=== PATIENT | female | born 1970 | race Caucasian/White ===

== ENCOUNTER → 2016-05-06 | Outpatient (CLI) | payer OTHER ==
[2016-05-06 09:17] LABS: ABSOLUTE BASOPHILS # (AUTO) 0.1 10^3/uL (0.0-0.2); ABSOLUTE EOSINOPHILS # (AUTO) 0.1 10^3/uL (0.0-0.6); ABSOLUTE LYMPHOCYTES (AUTO) 1.8 10^3/uL (0.5-4.7); ABSOLUTE MONOCYTES (AUTO) 0.3 10^3/uL (0.1-1.4); ABSOLUTE NEUT (AUTO) 2.7 10^3/uL (1.7-8.2); BASOPHILS % (AUTO) 1.2 % (0-2); EOSINOPHILS % (AUTO) 2.4 % (0-6); HEMATOCRIT 41.6 % (36.0-47.0); HEMOGLOBIN 13.9 g/dL (12.0-15.5); HGB HCT DIFFERENCE 0.1; LYMPHOCYTES % (AUTO) 35.6 % (13-45); MEAN CORPUSCULAR HEMOGLOBIN 31.4 pg (27.0-33.4); MEAN CORPUSCULAR HGB CONC 33.3 g/dL (32.0-36.0); MEAN CORPUSCULAR VOLUME 94 fl (80-97); MONOCYTES % (AUTO) 6.9 % (3-13); RED BLOOD COUNT 4.42 10^6/uL (3.72-5.28); RED CELL DISTRIBUTION WIDTH 12.3 % (11.5-14.0); SEGMENTED NEUTROPHILS % (AUTO) 53.9 % (42-78); WHITE BLOOD COUNT 4.9 10^3/uL (4.0-10.5)
[2016-05-06 09:25] LABS: APPEARANCE,URINE CLEAR; BILIRUBIN,URINE NEGATIVE (NEGATIVE); GLUCOSE, URINE NEGATIVE (NEGATIVE); KETONES,URINE NEGATIVE (NEGATIVE); LEUKOCYTE ESTERASE,URINE NEGATIVE (NEGATIVE); NITRITE,URINE NEGATIVE (NEGATIVE); PROTEIN,URINE NEGATIVE (NEGATIVE); URINE SPECIFIC GRAVITY 1.012; UROBILINOGEN,URINE NEGATIVE mg/dL (<2.0)
[2016-05-06 09:39] LABS: ALANINE AMINOTRANSFERASE 26 U/L (9-52); ALBUMIN 4.5 g/dL (3.5-5.0); ALKALINE PHOSPHATASE 63 U/L (38-126); ANION GAP 11 (5-19); ASPARTATE AMINO TRANSFERASE 24 U/L (14-36); BILIRUBIN,TOTAL 0.5 mg/dL (0.2-1.3); BLOOD UREA NITROGEN 15 mg/dL (7-20); CALCIUM 9.6 mg/dL (8.4-10.2); CARBON DIOXIDE 27 mmol/L (22-30); CHLORIDE 102 mmol/L (98-107); CHOLESTEROL 150.52 mg/dL (0-200); CREATININE RESULT 1.05 mg/dL (0.52-1.25); Direct HDL 57 mg/dL (>40); GLUCOSE 90 mg/dL (75-110); POTASSIUM 4.8 mmol/L (3.6-5.0); SODIUM 139.5 mmol/L (137-145); TOTAL PROTEIN 7.3 g/dL (6.3-8.2); TRIGLYCERIDES 56 mg/dL (<150)
[2016-05-06 09:50] LABS: DIRECT LDL 74 mg/dL (<100)
== END ==
LOC: OD 08:24
DX: Z79.899 Other long term (current) drug therapy (principal); R53.83 Other fatigue
CPT/HCPCS: 36415; 80053; 80061; 81001; 83036; 84443; 85025

== ENCOUNTER → 2016-05-10 | Outpatient (CLI) | payer OTHER ==
--- NOTE | 2016-05-10 16:08 | WOMENS IMAGING REPORT ---
EXAM DESCRIPTION: BILAT SCREENING MAMMO W/CAD COMPLETED DATE/TIME: 05/10/2016 1:23 pm REASON FOR STUDY: Z12.31 ROUTINE SCREENING MAMMO Z12.39 ENCOUNTER FOR OTH SCREENING FOR MALIGNANT N EOPLASM OF COMPARISON: None. TECHNIQUE: Standard craniocaudal and mediolateral oblique views of each breast recorded using digita l acquisition. LIMITATIONS: None. FINDINGS: No masses, calcifications or architectural distortion. No areas of suspicion. Read with the assistance of CAD. .[facility] - R2 Cenova Version 1.3 .[facility] - R2 Cenova Version 1.3 .[facility] - R2 Cenova Version 2.4 .[facility] [place] Cenova Version 2.4 .[facility] - R2 Launch Steward Version 9.2 BREAST DENSITY: b. There are scattered areas of fibroglandular density. BIRAD: 1 NEGATIVE RECOMMENDATION: ROUTINE SCREENING COMMENT: PATIENT NOTIFIED BY LETTER. The [employer] recommends an annual screening mammogram for women aged 40 years or over. Each patient will receive a reminder prior to the anniversary date of her mammogram. The [employer] (ACR) has developed recommendations for screening MRI of the breast s in certain patient populations, to be used in conjunction with mammography. Breast MRI surveillanc e may be appropriate for women with more than 20% lifetime risk of developing breast cancer as deter mined by genetic testing, significant family history of the disease, or history of mantle radiation f or Hodgkins Disease. ACR Practice Guidelines 2007. TECHNICAL DOCUMENTATION: FINDING NUMBER: (1) ASSESSMENT: (1) JOB ID: [id number] [employer]- All Rights Reserved
== END ==
LOC: WI 10:28
DX: Z12.31 Encounter for screening mammogram for malignant neoplasm of breast (principal); R06.02 Shortness of breath
CPT/HCPCS: 77067; G0202

== ENCOUNTER 2016-06-03 00:48 | Emergency (ER) | payer OTHER ==
[2016-06-03] MEDS ORDERED: DIPHENHYDRAMINE HCL 50 MG/ML VIAL IV ONE (02:32)
[2016-06-03] MEDS ORDERED: MORPHINE SULFATE 10 MG/ML INJ IV PRN (02:32)
[2016-06-03] MEDS ORDERED: NORMAL SALINE 1000 ML 1,000 ML IV ONE (02:33)
[2016-06-03] MEDS ORDERED: LORAZEPAM INJ 2 MG/1 ML VIAL ONE (02:55)
[2016-06-03 03:24] LABS: ABSOLUTE BASOPHILS # (AUTO) 0.1 10^3/uL (0.0-0.2); ABSOLUTE EOSINOPHILS # (AUTO) 0.1 10^3/uL (0.0-0.6); ABSOLUTE LYMPHOCYTES (AUTO) 1.5 10^3/uL (0.5-4.7); ABSOLUTE MONOCYTES (AUTO) 0.6 10^3/uL (0.1-1.4); ABSOLUTE NEUT (AUTO) 8.9 10^3/uL (1.7-8.2); BASOPHILS % (AUTO) 0.7 % (0-2); EOSINOPHILS % (AUTO) 0.9 % (0-6); HEMATOCRIT 36.5 % (36.0-47.0); HEMOGLOBIN 12.2 g/dL (12.0-15.5); HGB HCT DIFFERENCE 0.1; LYMPHOCYTES % (AUTO) 13.3 % (13-45); MEAN CORPUSCULAR HEMOGLOBIN 31.5 pg (27.0-33.4); MEAN CORPUSCULAR HGB CONC 33.6 g/dL (32.0-36.0); MEAN CORPUSCULAR VOLUME 94 fl (80-97); MONOCYTES % (AUTO) 5.5 % (3-13); RED BLOOD COUNT 3.89 10^6/uL (3.72-5.28); SEGMENTED NEUTROPHILS % (AUTO) 79.6 % (42-78); WHITE BLOOD COUNT 11.2 10^3/uL (4.0-10.5)
[2016-06-03 03:47] LABS: APPEARANCE,URINE CLEAR; BILIRUBIN,URINE NEGATIVE (NEGATIVE); GLUCOSE, URINE NEGATIVE (NEGATIVE); KETONES,URINE NEGATIVE (NEGATIVE); LEUKOCYTE ESTERASE,URINE NEGATIVE (NEGATIVE); NITRITE,URINE NEGATIVE (NEGATIVE); PROTEIN,URINE NEGATIVE (NEGATIVE); URINE SPECIFIC GRAVITY 1.003; UROBILINOGEN,URINE NEGATIVE mg/dL (<2.0)
[2016-06-03 04:15] LABS: ANION GAP 8 (5-19); BLOOD UREA NITROGEN 13 mg/dL (7-20); CALCIUM 8.6 mg/dL (8.4-10.2); CARBON DIOXIDE 22 mmol/L (22-30); CHLORIDE 108 mmol/L (98-107); GLUCOSE 105 mg/dL (75-110); POTASSIUM 4.2 mmol/L (3.6-5.0); SODIUM 138.4 mmol/L (137-145)
--- NOTE | 2016-06-03 04:37 | ER Document Report ---
ED General - General Chief Complaint: Allergic Reaction Stated Complaint: POSSIBLE ALLERGIC REACTION Notes: Patient is a 45-year-old female with past history of epilepsy who presents with shakiness and feelings of "internal feelings like I'm on fire" after taking clindamycin. Denies any shortness of breath, vomiting or diarrhea. No syncope. States that she felt anxious in the past of taking clindamycin but never to this degree of severity. She has not talked to her primary care doctor regarding today's concerns. Nothing improves or worsens her symptoms. TRAVEL OUTSIDE OF THE [place] IN LAST 30 DAYS: No - Related Data Allergies/Adverse Reactions: No Known Allergies Allergy (Verified 06/03/16 00:58) Past Medical History - General Information source: Patient - Social History Smoking Status: Never Smoker Chew tobacco use (# tins/day): No Frequency of alcohol use: None Drug Abuse: None Lives with: Spouse/Significant other Family History: Reviewed & Not Pertinent, Other - Gallbladder disease Patient has suicidal ideation: No Patient has homicidal ideation: No Pulmonary Medical History: Denies: Hx Tuberculosis Neurological Medical History: Reports: Hx Seizures - nocturnal; takes keppra Renal/ Medical History: Denies: Hx Peritoneal Dialysis Past Surgical History: Reports: Hx Section - Immunizations Hx Diphtheria, Pertussis, Tetanus Vaccination: Yes Review of Systems - Review of Systems Notes: Constitutional: Negative for fever. HENT: Negative for sore throat. Eyes: Negative for visual changes. Cardiovascular: Negative for chest pain. Respiratory: Negative for shortness of breath. Gastrointestinal: Negative for abdominal pain, vomiting or diarrhea. Genitourinary: Negative for dysuria. Musculoskeletal: Negative for back pain. Skin: Negative for rash. Neurological: Negative for headaches, weakness or numbness. 10 point ROS negative except as marked above and in HPI. Physical Exam - Vital signs Vitals: Temp Pulse Resp BP Pulse Ox 97.2 F 124 H 18 131/91 H 100 06/03/16 00:52 06/03/16 00:52 06/03/16 00:52 06/03/16 00:52 06/03/16 00:52 Interpretation: Tachycardic Notes: PHYSICAL EXAMINATION: GENERAL: Appears anxious but in no acute distress HEAD: Atraumatic, normocephalic. EYES: Pupils equal round and reactive to light, extraocular movements intact, sclera anicteric, conjunctiva are normal. ENT: nares patent, oropharynx clear without exudates. Moist mucous membranes. NECK: Normal range of motion, supple without lymphadenopathy LUNGS: Breath sounds clear to auscultation bilaterally and equal. No wheezes rales or rhonchi. HEART: Regular rate and rhythm without murmurs ABDOMEN: Soft, nontender, normoactive bowel sounds. No guarding, no rebound. No masses appreciated. EXTREMITIES: Normal range of motion, no pitting or edema. No cyanosis. NEUROLOGICAL: No focal neurological deficits. Moves all extremities spontaneously and on command. PSYCH: Anxious, tremulous SKIN: Warm, Dry, normal turgor, no rashes or lesions noted. Course - Re-evaluation Re-evalutation: 06/03/16 04:39 Patient presented with tremulousness and severe anxiety in the setting of taking clindamycin. She notes that she has had similar symptoms in the past and to include although never to this degree of severity. Patient did have some mild erythema without any raised lesions on her low back and abdomen although her clinical history was not suspicious for an acute true histamine mediated allergic reaction. Patient became increasingly anxious despite administration of IV Benadryl, and a small dose of IV Ativan was administered. This did resolve and a complete resolution of patient's symptoms. Her laboratories here including her urinalysis are overall unremarkable although bacteria is noted on the urinalysis. This is been sent for culture. Patient has already had antibiotics called to the pharmacy by her primary care doctor who is already cultured her urine site instructed her to start taking those antibiotics as prescribed. She is otherwise well in appearance, vitals within normal limits at this time.At this time will discharge with return precautions and follow-up recommendations. Verbal discharge instructions given a the bedside and opportunity for questions given. Medication warnings reviewed. Patient is in agreement with this plan and has verbalized understanding of return precautions and the need for primary care follow-up in the next 24-72 hours. - Vital Signs Vital signs: Temp Pulse Resp BP Pulse Ox 97.2 F 69 16 114/67 99 06/03/16 00:52 06/03/16 04:58 06/03/16 04:58 06/03/16 04:58 06/03/16 04:58 - Laboratory Result Diagrams: 06/03/16 02:45 06/03/16 03:32 Laboratory results interpreted by me: 02/27/17 02/27/17 02:45 03:32 WBC 11.2 H Seg Neutrophils % 79.6 H Absolute Neutrophils 8.9 H Chloride 108 H Discharge - Discharge Clinical Impression: Adverse reaction to antibiotic Qualifiers: Encounter type: initial encounter Qualified Code(s): T36.95XA - Adverse effect of unspecified systemic antibiotic, initial encounter Condition: Good Disposition: HOME, SELF-CARE Additional Instructions: Your history today seems to suggest that you have had an adverse reaction to clindamycin. Please avoid this medication in the future. Take the antibiotic as prescribed by your primary care doctor for the bacteria in the urine. Return for any new or worsening symptoms including fever, vomiting, passing out , or any other symptoms that are worrisome to you. Referrals: SARAH ACUÑA MD [Primary Care Provider] - Follow up tomorrow
[2016-06-03 05:00] VITALS: BP 114/67
== END 2016-06-03 04:58 | disposition home or self-care (01) ==
LOC: ER 00:48
DX: T36.95XA Adverse effect of unspecified systemic antibiotic, initial encounter (principal); F41.9 Anxiety disorder, unspecified
CPT/HCPCS: 99283; 96361; 96374; 96375; 36415; 87086; 85025; 80048; 81001; 87186; J1200; J2060; J7030; J2270

== ENCOUNTER → 2016-06-09 11:11 | Inpatient (IN) | payer OTHER ==
[2016-06-07] MEDS: NORMAL SALINE 1000 ML 1,000 ML IV PRN ×2 (16:28→22:06)
[2016-06-07 16:29] LABS: ABSOLUTE BASOPHILS # (AUTO) 0.1 10^3/uL (0.0-0.2); ABSOLUTE LYMPHOCYTES (AUTO) 1.6 10^3/uL (0.5-4.7); ABSOLUTE MONOCYTES (AUTO) 0.4 10^3/uL (0.1-1.4); ABSOLUTE NEUT (AUTO) 4.7 10^3/uL (1.7-8.2); BASOPHILS % (AUTO) 0.9 % (0-2); EOSINOPHILS % (AUTO) 0.6 % (0-6); HEMATOCRIT 39.7 % (36.0-47.0); HEMOGLOBIN 13.6 g/dL (12.0-15.5); HGB HCT DIFFERENCE 1.1; LYMPHOCYTES % (AUTO) 23.9 % (13-45); MEAN CORPUSCULAR HEMOGLOBIN 31.8 pg (27.0-33.4); MEAN CORPUSCULAR HGB CONC 34.2 g/dL (32.0-36.0); MEAN CORPUSCULAR VOLUME 93 fl (80-97); MONOCYTES % (AUTO) 5.3 % (3-13); RED BLOOD COUNT 4.27 10^6/uL (3.72-5.28); RED CELL DISTRIBUTION WIDTH 12.8 % (11.5-14.0); SEGMENTED NEUTROPHILS % (AUTO) 69.3 % (42-78); WHITE BLOOD COUNT 6.8 10^3/uL (4.0-10.5)
[2016-06-07] MEDS: ACETAMINOPHEN 325 MG TABLET PO PRN (16:43)
[2016-06-07 16:48] LABS: ALANINE AMINOTRANSFERASE 41 U/L (9-52); ALBUMIN 4.8 g/dL (3.5-5.0); ALKALINE PHOSPHATASE 69 U/L (38-126); ANION GAP 13 (5-19); ASPARTATE AMINO TRANSFERASE 35 U/L (14-36); BILIRUBIN,TOTAL 0.6 mg/dL (0.2-1.3); BLOOD UREA NITROGEN 7 mg/dL (7-20); CALCIUM 10.2 mg/dL (8.4-10.2); CARBON DIOXIDE 26 mmol/L (22-30); CHLORIDE 101 mmol/L (98-107); CREATININE RESULT 0.86 mg/dL (0.52-1.25); GLUCOSE 116 mg/dL (75-110); SODIUM 139.6 mmol/L (137-145); TOTAL PROTEIN 8.1 g/dL (6.3-8.2)
--- NOTE | 2016-06-07 16:55 | PDOC H&P ---
History of Present Illness Admission Date/PCP: 06/07/16 14:44 SARAH ACUÑA MD Patient complains of: Dysuria, chills and right flank pain History of Present Illness: LASHA SILVA is a 45 year old female who is referred for direct admission from [place] [facility]. Dr. Worthington, is the physician she has seen their. She states she was treated for his infected spider bite on her right thigh proximally 10 days ago. She initially was seen in a local urgent care and given a prescription for clindamycin. Her primary doctor change this to Cipro twice a day 4 days ago. She states she then began having dysuria so she returned her physician's office initiated urinalysis did not show UTI. She states he called her 2 days later because her culture grew out ESBL. She has no prior history of ESBL. 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 He then placed her on possible fosfomycin which pharmacies locally had trouble obtaining. She therefore never took this medication. She returned to her doctor's office today, because of increasing weakness, chills, and dysuria. She was then referred for IV the antibiotics and inpatient treatment. Presently she denies any fever or chills. She denies any significant flank pain. She states she does feel weak and slightly dehydrated. She feels as if she has to urinate all the time however, she has burning, with little urinary output. She also complains of metal taste in her mouth. She denies any shortness of breath, chest pain or dyspnea. She denies any headaches, nausea, or dizziness. She denies any significant arthralgias or myalgias. She does have a history of seizure disorders. She states her seizures are usually petit mal when she has them. Past Medical History Cardiac Medical History: Reports: None Pulmonary Medical History: Denies: Tuberculosis EENT Medical History: Reports: None Neurological Medical History: Reports: Seizures - nocturnal; takes keppra Endocrine Medical History: Reports: None Malignancy Medical History: Reports: None GI Medical History: Reports: None Skin Medical History: Reports: None Psychiatric Medical History: Denies: Depression Infectious Medical History: Reports: None Past Surgical History Past Surgical History: Reports: Section Social History Information Source: Parent Lives with: Spouse/Significant other Smoking Status: Never Smoker Frequency of Alcohol Use: None Hx Recreational Drug Use: No Hx Prescription Drug Abuse: No - Advance Directive Resuscitation Status: Full Code Surrogate healthcare decision maker:: should she become incapacitated Family History Family History: Reviewed & Not Pertinent, Other - Gallbladder disease Parental Family History Reviewed: Yes Children Family History Reviewed: Yes Sibling(s) Family History Reviewed.: Yes Medication/Allergy Home Medications: Fosfomycin Tromethamine [Monurol 3 gm Packet] 3 gm PO ONCE 06/07/16 Lamotrigine [Lamictal] 25 mg PO Q12 06/07/16 Levetiracetam [Keppra Xr 500 mg Tab.sr] 500 mg PO ASDIR PRN 06/07/16 Allergies/Adverse Reactions: clindamycin Allergy (Intermediate, Verified 06/07/16 15:59) Generalized rash Review of Systems Constitutional: PRESENT: anorexia, chills, fatigue, weakness Eyes: ABSENT: visual disturbances Ears: ABSENT: hearing changes Cardiovascular: ABSENT: chest pain, dyspnea on exertion, edema, orthropnea, palpitations Respiratory: ABSENT: cough, hemoptysis Gastrointestinal: ABSENT: abdominal pain, constipation, diarrhea, hematemesis, hematochezia, nausea, vomiting Integumentary: ABSENT: rash, wounds Neurological: PRESENT: dizziness, weakness Endocrine: ABSENT: cold intolerance, heat intolerance, polydipsia, polyuria Physical Exam Vital Signs: Temp Pulse Resp BP Pulse Ox 98.4 F 93 17 134/87 H 100 06/07/16 15:03 06/07/16 15:03 06/07/16 15:03 06/07/16 15:03 06/07/16 15:03 Intake & Output 06/06/16 06/07/16 06/08/16 06:59 06:59 06:59 Weight 62.278 kg General appearance: PRESENT: no acute distress, well-developed, well-nourished Head exam: PRESENT: atraumatic, normocephalic Eye exam: PRESENT: conjunctiva pink, EOMI, PERRLA. ABSENT: scleral icterus Ear exam: PRESENT: normal external ear exam Mouth exam: PRESENT: moist, tongue midline Neck exam: ABSENT: carotid bruit, JVD, lymphadenopathy, thyromegaly Respiratory exam: PRESENT: clear to auscultation arsalan. ABSENT: rales, rhonchi, wheezes Cardiovascular exam: PRESENT: RRR. ABSENT: diastolic murmur, rubs, systolic murmur Pulses: PRESENT: normal dorsalis pedis pul GI/Abdominal exam: PRESENT: normal bowel sounds, soft, other - CVA tenderness is negative. ABSENT: distended, guarding, mass, organolmegaly, rebound, tenderness Rectal exam: PRESENT: deferred Extremities exam: PRESENT: full ROM. ABSENT: calf tenderness, clubbing, pedal edema Neurological exam: PRESENT: alert, awake, oriented to person, oriented to place , oriented to time, oriented to situation, CN II-XII grossly intact. ABSENT: motor sensory deficit Psychiatric exam: PRESENT: appropriate affect, normal mood. ABSENT: homicidal ideation, suicidal ideation Skin exam: PRESENT: dry, intact, warm. ABSENT: cyanosis, rash Results Laboratory Results: 06/07/16 16:15 06/07/16 16:15 WBC 6.8 RBC 4.27 Hgb 13.6 Hct 39.7 MCV 93 MCH 31.8 MCHC 34.2 RDW 12.8 Plt Count 312 Seg Neutrophils % 69.3 Lymphocytes % 23.9 Monocytes % 5.3 Eosinophils % 0.6 Basophils % 0.9 Absolute Neutrophils 4.7 Absolute Lymphocytes 1.6 Absolute Monocytes 0.4 Absolute Eosinophils 0.0 Absolute Basophils 0.1 Assessment & Plan - Diagnosis (1) Pyelonephritis Is this a current diagnosis for this admission?: YesPlan: Culture reportedly grew out ESBL. We will reculture and start her on Invanz (2) Seizure disorder Is this a current diagnosis for this admission?: YesPlan: Continue home medications - Time Time Spent: 50 to 70 Minutes Critical Time spent with patient: 25-34 minutes Medications reviewed and adjusted accordingly: Yes Anticipated discharge: Home
[2016-06-07] MEDS: ERTAPENEM SODIUM 1 GM in NORMAL SALINE 50 ML IV SCH (17:47)
[2016-06-07 19:25] LABS: APPEARANCE,URINE CLEAR; BILIRUBIN,URINE NEGATIVE (NEGATIVE); GLUCOSE, URINE NEGATIVE (NEGATIVE); KETONES,URINE NEGATIVE (NEGATIVE); LEUKOCYTE ESTERASE,URINE NEGATIVE (NEGATIVE); NITRITE,URINE NEGATIVE (NEGATIVE); PROTEIN,URINE NEGATIVE (NEGATIVE); URINE SPECIFIC GRAVITY 1.008; UROBILINOGEN,URINE NEGATIVE mg/dL (<2.0)
[2016-06-07] MEDS: FAMOTIDINE 20 MG TABLET PO SCH (22:09)
[2016-06-07] MEDS: LAMOTRIGINE 25 MG TAB.CHEW PO SCH (22:10)
[2016-06-07] MEDS: PHENAZOPYRIDINE HCL 200 MG TABLET PO SCH (23:59)
[2016-06-08] MEDS: NORMAL SALINE 1000 ML 1,000 ML IV PRN ×3 (05:45→23:19)
[2016-06-08] MEDS: PHENAZOPYRIDINE HCL 200 MG TABLET PO SCH ×3 (05:45→22:41)
[2016-06-08] MEDS: ACETAMINOPHEN 325 MG TABLET PO PRN (05:45)
[2016-06-08] MEDS: FAMOTIDINE 20 MG TABLET PO SCH ×2 (10:34→22:41)
[2016-06-08] MEDS: FLUCONAZOLE 100 MG TABLET PO SCH (10:34)
[2016-06-08] MEDS: LAMOTRIGINE 25 MG TAB.CHEW PO SCH ×2 (10:35→22:41)
--- NOTE | 2016-06-08 17:00 | PDOC PROGRESS REPORT ---
Subjective Progress Note for:: 06/08/16 Subjective:: Patient morning rounds. She is presently resting comfortably in bed. She denies any further dysuria. She does have some zulay blood when she wipes from irritated tissue she thinks. Her vaginal symptoms have resolved since starting Diflucan. Urinalysis showed no leukocytes only a small amount of blood. She complains of feeling stressed and anxious. She does not usually take anything for that. She feels the situation of being in the hospital. She is afraid she may have bladder cancer. Physical Exam Vital Signs: Temp Pulse Resp BP Pulse Ox 97.9 F 63 18 126/56 H 100 06/08/16 12:35 06/08/16 12:35 06/08/16 12:35 06/08/16 12:35 06/08/16 12:35 Intake & Output 06/07/16 06/08/16 06/09/16 06:59 06:59 06:59 Intake Total 3790 Output Total 1000 Balance 2790 Weight 65.3 kg General appearance: PRESENT: no acute distress, well-developed, well-nourished Head exam: PRESENT: atraumatic, normocephalic Eye exam: PRESENT: conjunctiva pink, EOMI, PERRLA. ABSENT: scleral icterus Ear exam: PRESENT: normal external ear exam Mouth exam: PRESENT: moist, tongue midline Neck exam: ABSENT: carotid bruit, JVD, lymphadenopathy, thyromegaly Respiratory exam: PRESENT: clear to auscultation arsalan. ABSENT: rales, rhonchi, wheezes Cardiovascular exam: PRESENT: RRR. ABSENT: diastolic murmur, rubs, systolic murmur Pulses: PRESENT: normal dorsalis pedis pul Vascular exam: PRESENT: normal capillary refill GI/Abdominal exam: PRESENT: normal bowel sounds, soft. ABSENT: distended, guarding, mass, organolmegaly, rebound, tenderness Rectal exam: PRESENT: deferred Extremities exam: PRESENT: full ROM. ABSENT: calf tenderness, clubbing, pedal edema Neurological exam: PRESENT: alert, awake, oriented to person, oriented to place , oriented to time, oriented to situation, CN II-XII grossly intact. ABSENT: motor sensory deficit Psychiatric exam: PRESENT: appropriate affect, normal mood. ABSENT: homicidal ideation, suicidal ideation Skin exam: PRESENT: dry, intact, warm. ABSENT: cyanosis, rash Results Laboratory Results: 06/07/16 16:15 06/07/16 16:15 06/07/16 17:55 Urine Color YELLOW Urine Appearance CLEAR Urine pH 6.0 Ur Specific [place] 1.008 Urine Protein NEGATIVE Urine Glucose (UA) NEGATIVE Urine Ketones NEGATIVE Urine Blood SMALL H Urine Nitrite NEGATIVE Ur Leukocyte Esterase NEGATIVE Urine WBC (Auto) 1 Urine RBC (Auto) 1 Impressions: Renal Ultrasound 06/08/16 00:00 IMPRESSION: Mildly dilated left renal pelvis without visualized stones. Assessment & Plan - Diagnosis (1) Pyelonephritis Is this a current diagnosis for this admission?: YesPlan: Culture reportedly grew out ESBL in her primary physician's office. Urinalysis here shows no leukocytosis, nitrates and only small amount of blood. Urine culture and blood cultures are still pending. Will obtain renal ultrasound to rule out any bladder renal pathology. We will reculture and start her on Invanz (2) Seizure disorder Is this a current diagnosis for this admission?: YesPlan: Continue home medications (3) Anxiety Is this a current diagnosis for this admission?: YesPlan: We'll order Xanax 0.5 every 6 when necessary for anxiety. - Time Time Spent with patient: 25-34 minutes Critical Time spent with patient: 15-24 minutes Anticipated discharge: Home
[2016-06-08] MEDS: ERTAPENEM SODIUM 1 GM in NORMAL SALINE 50 ML IV SCH (17:38)
[2016-06-09] MEDS: PHENAZOPYRIDINE HCL 200 MG TABLET PO SCH (05:08)
[2016-06-09 08:41] VITALS: BP 122/76
[2016-06-09] MEDS: LAMOTRIGINE 25 MG TAB.CHEW PO SCH (10:17)
[2016-06-09] MEDS: FAMOTIDINE 20 MG TABLET PO SCH (10:17)
[2016-06-09] MEDS: FLUCONAZOLE 100 MG TABLET PO SCH (10:17)
[~2016-06-09 11:11] MED LIST: ALPRAZOLAM 0.5 MG TABLET PO PRN; ERTAPENEM SODIUM 1 GM in NORMAL SALINE 50 ML IV SCH; KETOROLAC TROMETHAMINE INJ/PF 30 MG/1 ML SDV IV PRN; LEVETIRACETAM XR 500 MG TAB.SR.24H PO PRN; LEVETIRACETAM XR 500 MG TAB.SR.24H PO SCH
--- NOTE | 2016-06-09 14:05 | PDOC DISCHARGE SUMMARY ---
General - Admit/Disc Date/PCP Admission Date/Primary Care Provider: 06/07/16 14:44 SARAH ACUÑA MD Discharge Date: 06/09/16 - Discharge Diagnosis (1) Pyelonephritis Is this a current diagnosis for this admission?: YesSummary: Resolved (2) Seizure disorder Is this a current diagnosis for this admission?: YesSummary: Continue medications (3) Anxiety Is this a current diagnosis for this admission?: YesSummary: Continue anxiolytic as needed - Additional Information Resuscitation Status: Full Code Discharge Diet: Regular Discharge Activity: Activity As Tolerated Home Medications: Lamotrigine [Lamictal] 25 mg PO Q12 06/07/16 Levetiracetam [Keppra Xr 500 mg Tab.sr] 500 mg PO ASDIR PRN 06/07/16 Acetaminophen [Tylenol 325 mg Tablet] 650 mg PO Q4HP PRN tablet 06/09/16 Alprazolam [Xanax 0.5 mg Tablet] 0.5 mg PO Q6HP PRN #20 tablet 06/09/16 Fluconazole [Diflucan] 150 mg PO DAILY #3 tablet 06/09/16 Phenazopyridine HCl [Pyridium 200 mg Tablet] 200 mg PO Q8 #6 tablet 06/09/16 History of Present Illness History of Present Illness: LASHA SILVA is a 45 year old female who is referred for direct admission from [place] primary care office. Dr. Worthington, is the physician she has seen their. She states she was treated for his infected spider bite on her right thigh proximally 10 days ago. She initially was seen in a local urgent care and given a prescription for clindamycin. Her primary doctor change this to Cipro twice a day 4 days ago. She states she then began having dysuria so she returned her physician's office initiated urinalysis did not show UTI. She states he called her 2 days later because her culture grew out ESBL. She has no prior history of ESBL. 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 He then placed her on possible fosfomycin which pharmacies locally had trouble obtaining. She therefore never took this medication. She returned to her doctor's office today, because of increasing weakness, chills, and dysuria. She was then referred for IV the antibiotics and inpatient treatment. Presently she denies any fever or chills. She denies any significant flank pain. She states she does feel weak and slightly dehydrated. She feels as if she has to urinate all the time however, she has burning, with little urinary output. She also complains of metal taste in her mouth. She denies any shortness of breath, chest pain or dyspnea. She denies any headaches, nausea, or dizziness. She denies any significant arthralgias or myalgias. She does have a history of seizure disorders. She states her seizures are usually petit mal when she has them. Hospital Course Hospital Course: Patient was instructed admission from [facility]. She had been treated there for for recent urinary tract infection and the cellulitis. She returned to her physician complaining of increasing burning with urination. Initial urinalysis was unremarkable. Her urine culture however, did grow ESBL. She was therefore referred to the hospitalist for admission for possible pyelonephritis. Initially she was recultured. Urinalysis showed only small amount of blood and no leukocytes or nitrates. She was started on Invanz IV. She continued have some pelvic pressure, therefore a renal bladder ultrasound was obtained which was unremarkable. She had some issues with anxiety was given Xanax 0.5 which she tolerated well. Today she is ready for discharge Physical Exam Vital Signs: Temp Pulse Resp BP Pulse Ox 98.3 F 18 L 18 122/76 100 06/09/16 10:40 06/09/16 10:40 06/09/16 10:40 06/09/16 10:40 06/09/16 10:40 Intake & Output 06/08/16 06/09/16 06/10/16 06:59 06:59 06:59 Intake Total 3790 1771 120 Output Total 1000 Balance 2790 1771 120 Weight 65.3 kg 69.3 kg General appearance: PRESENT: no acute distress, well-developed, well-nourished Head exam: PRESENT: atraumatic, normocephalic Eye exam: PRESENT: conjunctiva pink, EOMI, PERRLA. ABSENT: scleral icterus Ear exam: PRESENT: normal external ear exam Mouth exam: PRESENT: moist, tongue midline Neck exam: ABSENT: carotid bruit, JVD, lymphadenopathy, thyromegaly Respiratory exam: PRESENT: clear to auscultation arsalan. ABSENT: rales, rhonchi, wheezes Cardiovascular exam: PRESENT: RRR. ABSENT: diastolic murmur, rubs, systolic murmur Pulses: PRESENT: normal dorsalis pedis pul Vascular exam: PRESENT: normal capillary refill GI/Abdominal exam: PRESENT: normal bowel sounds, soft. ABSENT: distended, guarding, mass, organolmegaly, rebound, tenderness Rectal exam: PRESENT: deferred Extremities exam: PRESENT: full ROM. ABSENT: calf tenderness, clubbing, pedal edema Neurological exam: PRESENT: alert, awake, oriented to person, oriented to place , oriented to time, oriented to situation, CN II-XII grossly intact. ABSENT: motor sensory deficit Psychiatric exam: PRESENT: appropriate affect, normal mood. ABSENT: homicidal ideation, suicidal ideation Skin exam: PRESENT: dry, intact, warm. ABSENT: cyanosis, rash Results Laboratory Results: 06/07/16 16:15 06/07/16 16:15 06/07/16 17:55 Clean Catch Midstream Urine Culture - Final NO GROWTH 2 DAYS Impressions: Renal Ultrasound 06/08/16 00:00 IMPRESSION: Mildly dilated left renal pelvis without visualized stones. Qualifiers PATEINT BEING DISCHARGED WITH ANY OF THE FOLLOWING DIAGNOSIS?: No Plan Discharge Plan: Home with Time Spent: Less than 30 Minutes
== END | disposition home or self-care (01) | DRG 690 ==
LOC: UNDOADMIN 06-07 14:44 → 4N 06-07 14:44 → UNDOADMIN 06-07 14:43 → 4N 06-07 14:43 → UNDOADMIN 06-07 15:30 → 4N 06-07 15:30
PROVIDERS: ADMIT Internal Medicine; ATTEND Internal Medicine
DX: N12 Tubulo-interstitial nephritis, not specified as acute or chronic (principal); F41.9 Anxiety disorder, unspecified; G40.909 Epilepsy, unspecified, not intractable, without status epilepticus; Z16.12 Extended spectrum beta lactamase (ESBL) resistance; Z88.1 Allergy status to other antibiotic agents
CPT/HCPCS: 36415; 76770; 80053; 81001; 85025; 87040; 87086; J1335; J3490; J7030

== ENCOUNTER 2016-06-13 16:16 | Emergency (ER) | payer OTHER ==
[2016-06-13] MEDS ORDERED: EPINEPHRINE INJ/PF 1 MG/1 ML AMPULE IM ONE (16:23)
--- NOTE | 2016-06-13 16:23 | ER Document Report ---
ED Medical Screen (RME) - General Stated Complaint: MOUTH PAIN/LIGHTHEADED Notes: patient is a 45 year old female p/w shortness of breath, skin itching. Patient states that she was working in her bee yard, lit the smoker and then felt I have greeted and performed a rapid initial assessment of this patient. A comprehensive ED assessment and evaluation of the patient, analysis of test results and completion of the medical decision making process will be conducted by additional ED providers. TRAVEL OUTSIDE OF THE [place] IN LAST 30 DAYS: No - Related Data Allergies/Adverse Reactions: clindamycin Allergy (Intermediate, Verified 06/07/16 15:59) Generalized rash Past Medical History Pulmonary Medical History: Denies: Hx Tuberculosis Neurological Medical History: Reports: Hx Seizures - nocturnal; takes keppra Renal/ Medical History: Denies: Hx Peritoneal Dialysis Psychiatric Medical History: Denies: Hx Depression Past Surgical History: Reports: Hx Section - Immunizations Hx Diphtheria, Pertussis, Tetanus Vaccination: Yes
[2016-06-13] MEDS ORDERED: DEXAMETHASONE SOD PHOS INJ 10 MG/1 ML VIAL IM ONE (16:24)
[2016-06-13] MEDS ORDERED: DIPHENHYDRAMINE HCL 50 MG/ML VIAL IM ONE (16:24)
[2016-06-13] MEDS ORDERED: FAMOTIDINE INJ/PF 20 MG/2 ML SDV IV ONE (16:25)
[2016-06-13] MEDS ORDERED: FAMOTIDINE 20 MG TABLET PO ONE (16:25)
--- NOTE | 2016-06-13 16:34 | ER Document Report ---
ED Medical Screen (RME) - General Stated Complaint: MOUTH PAIN/LIGHTHEADED Notes: patient is a 45 year old female who is being treated for multi drug resistant UTI. Was admitted for IV invanz and d/c'd home on diflucan but she hasnt been able to tolerate PO for the past two days. Hasnt been tolerating PO even prior to d/c. PMH: epilepsy I have greeted and performed a rapid initial assessment of this patient. A comprehensive ED assessment and evaluation of the patient, analysis of test results and completion of the medical decision making process will be conducted by additional ED providers. TRAVEL OUTSIDE OF THE [place] IN LAST 30 DAYS: No - Related Data Allergies/Adverse Reactions: clindamycin Allergy (Intermediate, Verified 06/13/16 16:33) Generalized rash Past Medical History Pulmonary Medical History: Denies: Hx Tuberculosis Neurological Medical History: Reports: Hx Seizures - nocturnal; takes keppra Renal/ Medical History: Denies: Hx Peritoneal Dialysis Psychiatric Medical History: Denies: Hx Depression Past Surgical History: Reports: Hx Section - Immunizations Hx Diphtheria, Pertussis, Tetanus Vaccination: Yes
[2016-06-13] MEDS ORDERED: NORMAL SALINE 1000 ML 1,000 ML IV PRN (16:39)
[2016-06-13 17:25] LABS: ABSOLUTE BASOPHILS # (AUTO) 0.1 10^3/uL (0.0-0.2); ABSOLUTE LYMPHOCYTES (AUTO) 2.1 10^3/uL (0.5-4.7); ABSOLUTE MONOCYTES (AUTO) 0.5 10^3/uL (0.1-1.4); ABSOLUTE NEUT (AUTO) 5.3 10^3/uL (1.7-8.2); APPEARANCE,URINE SLIGHTLY-CLOUDY; BASOPHILS % (AUTO) 0.7 % (0-2); BILIRUBIN,URINE NEGATIVE (NEGATIVE); CALCIUM OXALATE CRYSTALS,URINE MODERATE /HPF; EOSINOPHILS % (AUTO) 0.6 % (0-6); GLUCOSE, URINE NEGATIVE (NEGATIVE); HEMOGLOBIN 13.9 g/dL (12.0-15.5); HGB HCT DIFFERENCE 0.7; KETONES,URINE NEGATIVE (NEGATIVE); LEUKOCYTE ESTERASE,URINE NEGATIVE (NEGATIVE); LYMPHOCYTES % (AUTO) 26.5 % (13-45); MEAN CORPUSCULAR HEMOGLOBIN 32.1 pg (27.0-33.4); MEAN CORPUSCULAR HGB CONC 33.9 g/dL (32.0-36.0); MEAN CORPUSCULAR VOLUME 95 fl (80-97); MONOCYTES % (AUTO) 6.1 % (3-13); NITRITE,URINE NEGATIVE (NEGATIVE); PROTEIN,URINE NEGATIVE (NEGATIVE); RED BLOOD COUNT 4.34 10^6/uL (3.72-5.28); SEGMENTED NEUTROPHILS % (AUTO) 66.1 % (42-78); URINE SPECIFIC GRAVITY 1.014; UROBILINOGEN,URINE NEGATIVE mg/dL (<2.0); WHITE BLOOD COUNT 7.9 10^3/uL (4.0-10.5)
[2016-06-13 17:49] LABS: ALANINE AMINOTRANSFERASE 31 U/L (9-52); ALBUMIN 4.7 g/dL (3.5-5.0); ALKALINE PHOSPHATASE 62 U/L (38-126); ANION GAP 11 (5-19); ASPARTATE AMINO TRANSFERASE 24 U/L (14-36); BILIRUBIN,TOTAL 0.7 mg/dL (0.2-1.3); BLOOD UREA NITROGEN 6 mg/dL (7-20); CALCIUM 10.4 mg/dL (8.4-10.2); CARBON DIOXIDE 29 mmol/L (22-30); CHLORIDE 101 mmol/L (98-107); GLUCOSE 101 mg/dL (75-110); LIPASE 67.5 U/L (23-300); POTASSIUM 3.9 mmol/L (3.6-5.0); SODIUM 141.2 mmol/L (137-145); TOTAL PROTEIN 7.6 g/dL (6.3-8.2)
--- NOTE | 2016-06-13 18:49 | ER Document Report ---
ED General - General Chief Complaint: Mouth Problem Stated Complaint: MOUTH PAIN/LIGHTHEADED Mode of Arrival: Ambulatory Notes: Patient presents to the emergency department referred by her [employer] Dr. Irving for possible dehydration. Patient gives history of spider bite back in April. She was placed on clindamycin for which she had an allergic reaction. She was then placed on Cipro. She was contacted by her primary care provider and told that she had a urinary tract infection. She was placed on Bactrim for that. She reports she then received a call from her primary care provider telling her that the bacteria that was growing in her urine was not susceptible to Bactrim so he switched her again to fosfomycin. Patient reports that she was admitted here last Friday for three days by her primary care provider for a UTI pyelonephritis. She was treated with IV antibiotics and fluids. She was also placed on 4 days of diflucan for a yeast infection. Today she was evaluated by her [employer] for the yeast infection. She was prescribed nystatin swish/swallow. She was also instructed to warehouse order picker the vaginal suppository monostat. Patient was then sent to the ED for IV Fluids. She reports she has not been able to eat or drink for a week because her mouth has thrush, which developed after all the antibiotics. TRAVEL OUTSIDE OF THE [place] IN LAST 30 DAYS: No - HPI Onset: Other Onset/Duration: Persistent Severity: Mild Pain Level: 1 Associated symptoms: Other - mouth pain Exacerbated by: Food Relieved by: Denies Similar symptoms previously: Yes Recently seen / treated by doctor: Yes - Related Data Allergies/Adverse Reactions: clindamycin Allergy (Intermediate, Verified 06/13/16 16:33) Generalized rash Past Medical History - General Information source: Patient Last Menstrual Period: 3 weekends ago - Social History Smoking Status: Never Smoker Chew tobacco use (# tins/day): No Frequency of alcohol use: None Occupation: nurse Lives with: Family Family History: Reviewed & Not Pertinent, Other - Gallbladder disease Patient has suicidal ideation: No Patient has homicidal ideation: No Pulmonary Medical History: Denies: Hx Tuberculosis EENT Medical History: Reports: Ears - [place], wears hearing aids Neurological Medical History: Reports: Hx Seizures - nocturnal; takes keppra Renal/ Medical History: Denies: Hx Peritoneal Dialysis Psychiatric Medical History: Denies: Hx Depression Past Surgical History: Reports: Hx Section, Hx Cholecystectomy - Immunizations Hx Diphtheria, Pertussis, Tetanus Vaccination: Yes Review of Systems - Review of Systems Notes: Review HPI for review of systems., All other systems negative EENT: Mouth pain Physical Exam - Vital signs Vitals: Temp Pulse Resp BP Pulse Ox 98.5 F 75 14 137/91 H 99 06/13/16 16:34 06/13/16 16:34 06/13/16 16:34 06/13/16 16:34 06/13/16 16:34 - Notes Notes: PHYSICAL EXAMINATION: GENERAL: Well-appearing and in no acute distress nontoxic looking HEAD: Atraumatic, normocephalic. EYES: Pupils equal round and reactive to light, extraocular movements intact, sclera anicteric, conjunctiva are normal. ENT: hearing aids removed, nares patent, oropharynx clear without exudates. Moist mucous membranes. white coating on tongue noted. swallows without problems NECK: Normal range of motion, supple without lymphadenopathy LUNGS: CTAB and equal. No wheezes rales or rhonchi. HEART: Regular rate and rhythm without murmurs ABDOMEN: Soft, no tenderness. No guarding, no rebound EXTREMITIES: Normal range of motion, no pitting edema. No cyanosis. NEUROLOGICAL: Cranial nerves grossly intact. Normal sensory/motor exams. PSYCH: Normal mood, normal affect. SKIN: Warm, Dry, normal turgor, no rashes or lesions noted- no evidence of spider bite to right thigh Course - Re-evaluation Re-evalutation: 06/13/16 18:58 Pt's previous charts and labs reviewed. I consulted dr rosen, labs reviewed, pt c/o. pt has nystatin swish and swallow, he advised continue. Dr Rosen assessed patient. 06/13/16 19:36 Patient and family instructed on LABS. 06/13/16 19:56 no leukocytosis, no s/s dehydration. drinking po fluids, felt nauseated at first , but swallowed without problems. declines antinausea medication. patient has fu visit with ob on Friday - Vital Signs Vital signs: Temp Pulse Resp BP Pulse Ox 98.5 F 74 18 137/75 H 98 06/13/16 16:34 06/13/16 20:05 06/13/16 20:05 06/13/16 20:05 06/13/16 20:05 - Laboratory Result Diagrams: 06/13/16 17:08 06/13/16 17:08 Laboratory results interpreted by me: 06/13/16 17:08 BUN 6 L Calcium 10.4 H Discharge - Discharge Clinical Impression: Elevated blood pressure reading, Mouth pain, History of thrush Condition: Stable Disposition: HOME-ASSISTED LIVING Instructions: Oral Thrush ([facility]), Nystatin ([facility]), Intravenous (IV) Fluids ([facility]) Additional Instructions: *You have been evaluated for sore mouth, history of thrush *Continue to take swish and swallow medication as prescribed *Stay well hydrated as discussed *Follow-up with a primary care provider within 5 days *Return to ED for worsening condition change, needs *Monitor your blood pressure. Your blood pressure was elevated today. This may be because you were anxious, in pain or because you need medication. It is important to follow up with your primary care provider for full evaluation. Forms: Elevated Blood Pressure
[2016-06-13 20:05] VITALS: BP 137/75
== END 2016-06-13 20:05 | disposition home health service (06) ==
LOC: ER 16:16
DX: B37.0 Candidal stomatitis (principal); T36.95XA Adverse effect of unspecified systemic antibiotic, initial encounter; R03.0 Elevated blood-pressure reading, without diagnosis of hypertension; Z88.1 Allergy status to other antibiotic agents
CPT/HCPCS: 36415; 80053; 81001; 81025; 83690; 85025; 99283